=== PATIENT | female | born 1990 | race Caucasian/White ===

== ENCOUNTER 2017-12-16 16:47 | Emergency (ER) | payer OTHER | END 2017-12-16 17:30 | disposition home or self-care (01) | LOC: E/R 16:47 | DX: J02.9 Acute pharyngitis, unspecified (principal) | CPT/HCPCS: 99283; Z7502 ==

== ENCOUNTER 2018-07-25 15:23 | Emergency (ER) | payer OTHER | END 2018-07-25 16:32 | disposition home or self-care (01) | LOC: FTE 15:23 | DX: H69.93 Unspecified Eustachian tube disorder, bilateral (principal) | CPT/HCPCS: 99282; Z7502 ==